=== PATIENT | female | born 1950 | race Caucasian/White ===

== ENCOUNTER → 2017-08-12 11:23 | Outpatient (CLI) | payer OTHER, MEDICARE, SELFPAY ==
--- NOTE | 2017-08-12 | IMM_PTH ---
PATIENT: BONIFACIO CARPENTER LOC: [facility] U#:[id number] AGE/SX: 75/F ROOM: RE08/12/[address]: Dr. Jesus Penaloza MD : 1950 BED: DIS: SPEC #: [id number] RECD: 08/13/17 10:29 STATUS: CHEL REElicia #: [id number] JONNIE: 08/12/17 00:[address]: Jesus Penaloza DEPT: IMMUNOHISTOCHEMISTRY RECD BY: Erika Zuniga ENTERED: 08/13/17 10:32 SP TYPE: IMMUNO OTHR DR: Dr. Dany Holman MD Tissues: B - Skin of forearm, NOS Procedures: MACRO (add) P53 (add) Vimentin (add) Pankeratin (add) MELAN-A (initial) S-100 (add) PHYSICIAN & INSTITUTION [place] [id number] SPECIMEN INFORMATION: Tissue Source: B ? Left forearm punch biopsy Clinical Info: Skin lesion left scapula and left forearm Specimen Number: [id number] CPT code: 55847, 11691 x5 METHODOLOGY: Deparaffinized sections of prefer/formalin-fixed tissue or PAP/DQ stained slides are incubated with monoclonal/polyclonal antibodies/oligonucleotide probes. Localization is made via biotin free immunoperoxidase method. Appropriate controls are performed and reacted as expected. Results on target cell population are indicated in the following table: RESULTS: ANTIBODY / CLONE RESULT Block B S-100 (4C4.9) negative Melan A (A103) positive Vimentin (V9) positive AE1-3 (AE1/AE3/PCK26) negative P53 (DO-7) negative Macro (HAM-56) negative These tests were developed and their performance characteristics determined by [facility]. They may not have been cleared or approved by the U.S. Food and Drug Administration. The FDA has determined that such clearance or approval is not necessary. INTERPRETATION: B. Left forearm, punch biopsy: Consistent with solar lentigo. AM:víctor 08/13/17
--- NOTE | 2017-08-12 09:30 | LES_PTH ---
PATIENT: BONIFACIO CARPENTER LOC: [facility] U#:[id number] AGE/SX: 75/F ROOM: RE08/12/[address]: Dr. Jesus Penaloza MD : 1950 BED: DIS: SPEC #: [id number] RECD: 08/12/17 10:19 STATUS: CHEL MILTON #: [id number] JONNIE: 08/12/17 09:[address]: Jesus Penaloza DEPT: SURGICAL PATHOLOGY RECD BY: Emanuel Tello ENTERED: 08/12/17 11:47 SP TYPE: Lesion OTHR DR: Dr. Dany Holman MD Tissues: A - Scapula, NOS B - Skin of forearm, NOS Procedures: Special Stain Group I Surgery Specimen Level IV GMS Stain (control) HEADER OPERATION: Left scapula shave biopsy and left forearm punch PRE-OP DIAGNOSIS: Skin lesion left scapula and left forearm TISSUE SUBMITTED: A ? Left scapula shave biopsy, B ? Left forearm punch biopsy MICROSCOPIC DIAGNOSIS A. Lesion of left scapula, shave biopsy: Verrucoid keratosis, inflamed. See comment. B. Skin of left forearm, punch biopsy: Consistent with solar lentigo. Solar elastosis. See comment. AM:víctor 08/13/17 COMMENT A. GMS stain with matched control reveals rare fungal organisms suggestive of Tinea. B. Immunohistochemistry ([id number]) supports the above diagnosis. MICROSCOPIC DESCRIPTION Slides are reviewed. GROSS DESCRIPTION A - Received in fixative is one container labeled with the patient's name and designated left scapula shave biopsy. The specimen consists of a shave biopsy of healy-white skin measuring 0.5 x 0.5 x 0.1 cm. The specimen is inked and submitted entirely in one cassette. It will be bisected at the time of embedding. B - Received in fixative is one container labeled with the patient's name and designated left forearm. The specimen consists of a punch biopsy of healy-brown skin measuring 0.3 cm in diameter and 0.3 cm in length. The specimen is totally submitted in one cassette. / TROY:víctor 08/12/17 TC:5 CPT: 85794 x2, 76901
== END ==
PROVIDERS: Family Provider Internal Medicine; PCP Internal Medicine; Visit Provider Surgery
DX: L82.0 Inflamed seborrheic keratosis (principal); L57.8 Other skin changes due to chronic exposure to nonionizing radiation
CPT/HCPCS: 88305; 88312; 88341; 88342

== ENCOUNTER → 2017-10-20 08:32 | Outpatient (CLI) | payer OTHER, MEDICARE, SELFPAY ==
--- NOTE | 2017-10-20 08:36 | BI_ITS ---
MAMMOGRAPHY - BILATERAL SCREENING 3-D JIGNESH SYNTHESIS REASON FOR EXAM: Female, 67 years old. Bilateral Screening 3-D tomosynthesis PERTINENT HISTORY: Asymptomatic. Right stereotactic biopsy 20+ years ago. Family breast carcinoma suspected, mother age 91. TECHNIQUE: 2-D mammograms and 3-D Jignesh synthesis of the breast (s) were performed. CAD was performed. COMPARISON: 10/16/2016, 10/10/2015. FINDINGS: The breast composition is heterogeneously dense that can obscure small breast masses. No new asymmetric density, dominant mass, dense spiculated masses, abnormal clustered microcalcifications, architectural distortion, skin thickening or nipple retraction identified. Coarse benign-appearing calcifications including severe vascular calcifications. No new abnormality identified with tomosynthesis. There has been no significant change since the prior study. BI/SCREENING MAMM (CAD), BILAT IMPRESSION: No mammographic signs of malignancy. Routine yearly mammograms recommended. ASSESSMENT CATEGORY: BIRADS Category 2: Benign. A letter regarding these results will be sent to the patient by the facility within 30 days. FOLLOW UP RECOMMENDATION: Yearly follow up mammogram recommended. (A) Negative results should not deter biopsy as a palpable lesion should be followed on clinical grounds and biopsy performed if clinically persistent for 3 months or increasing size. Approximately 10% of breast cancers are not detected by mammography. A normal mammogram should not delay biopsy of a clinically suspicious abnormality. Electronically Signed: Jesus Burgos, at 19:38 EDT Tel , Service support ,
== END ==
PROVIDERS: Family Provider Internal Medicine; PCP Internal Medicine; Visit Provider Nurse Practitioner Women's Health
DX: Z12.31 Encounter for screening mammogram for malignant neoplasm of breast (principal)
CPT/HCPCS: 77063; 77067

== ENCOUNTER → 2017-11-08 07:54 | Outpatient (CLI) | payer OTHER, MEDICARE, SELFPAY ==
--- NOTE | 2017-11-08 07:55 | US_ITS ---
STUDY: ULTRASOUND OF THE FEMALE PELVIS - COMPLETE REASON FOR EXAM: Female, 67 years old. Right-sided mass LMP: Unknown. TECHNIQUE: Transabdominal and Transvaginal TECHNICAL QUALITY: Adequate. COMPARISON: None. FINDINGS: The uterus is anteverted and is in a midline position. The uterus measures 4.5 x 2.3 x 2.0 cm. Normal uterine cervix. The endometrium measures 4.1 mm in thickness, and is hyperechoic. There is no demonstrated endometrial mass. There is no demonstrated myometrial mass. I.U.D. - The patient does not have an I.U.D. The right ovary is visualized. There is a heterogeneously echogenic overall hypoechoic right adnexal mass measuring 7.0 x 7.6 x 5.5 cm. Discrete right ovarian tissue is not identified. The left ovary is non-visualized. There is no fluid in the cul-de-sac. The pre void volume of the bladder was 180 ml. Polycystic ovary disease: No. US/Pelvic (Non ) IMPRESSION: Heterogeneously echogenic overall hypoechoic right adnexal mass measuring 7.0 x 7.6 x 5.5 cm. Discrete right ovarian tissue is not identified. The left ovary is not visualized. Uterus is unremarkable. CT of the pelvis with oral and intravenous contrast and/or pelvic MRI is recommended for further evaluation at this time. Electronically Signed: Luis A Shaw MD at 17:06 EDT , Service support ,
--- NOTE | 2017-11-08 07:55 | US_ITS ---
STUDY: ULTRASOUND OF THE FEMALE PELVIS - COMPLETE REASON FOR EXAM: Female, 67 years old. Right-sided mass LMP: Unknown. TECHNIQUE: Transabdominal and Transvaginal TECHNICAL QUALITY: Adequate. COMPARISON: None. FINDINGS: The uterus is anteverted and is in a midline position. The uterus measures 4.5 x 2.3 x 2.0 cm. Normal uterine cervix. The endometrium measures 4.1 mm in thickness, and is hyperechoic. There is no demonstrated endometrial mass. There is no demonstrated myometrial mass. I.U.D. - The patient does not have an I.U.D. The right ovary is visualized. There is a heterogeneously echogenic overall hypoechoic right adnexal mass measuring 7.0 x 7.6 x 5.5 cm. Discrete right ovarian tissue is not identified. The left ovary is non-visualized. There is no fluid in the cul-de-sac. The pre void volume of the bladder was 180 ml. Polycystic ovary disease: No. US/Transvaginal Non- IMPRESSION: Heterogeneously echogenic overall hypoechoic right adnexal mass measuring 7.0 x 7.6 x 5.5 cm. Discrete right ovarian tissue is not identified. The left ovary is not visualized. Uterus is unremarkable. CT of the pelvis with oral and intravenous contrast and/or pelvic MRI is recommended for further evaluation at this time. Electronically Signed: Luis A Shaw MD at 17:06 EDT , Service support ,
== END ==
PROVIDERS: Family Provider Internal Medicine; PCP Internal Medicine; Visit Provider Nurse Practitioner Women's Health
DX: N94.9 Unspecified condition associated with female genital organs and menstrual cycle (principal)
CPT/HCPCS: 76830; 76856

== ENCOUNTER → 2017-11-11 09:11 | Outpatient (CLI) | payer MEDICARE, OTHER, SELFPAY ==
[2017-11-12 10:02] LABS: Carcinoembryonic Antigen 1.7 ng/mL (0.0-4.7)
== END ==
PROVIDERS: Family Provider Internal Medicine; PCP Internal Medicine; Visit Provider Nurse Practitioner Women's Health
DX: N94.9 Unspecified condition associated with female genital organs and menstrual cycle (principal)
CPT/HCPCS: 36415; 82378; 86304

== ENCOUNTER → 2017-11-19 07:20 | Outpatient (CLI) | payer MEDICARE, SELFPAY ==
[2017-11-19 07:30] LABS: CREATININE FINGERSTICK < 0.6 mg/dL (0.55-1.02)
== END ==
PROVIDERS: Family Provider Internal Medicine; PCP Internal Medicine; Visit Provider Nurse Practitioner Women's Health
DX: N94.9 Unspecified condition associated with female genital organs and menstrual cycle (principal)
CPT/HCPCS: 74177; Q9967

== ENCOUNTER → 2017-12-10 08:58 | Outpatient (CLI) | payer MEDICARE, SELFPAY ==
[2017-12-10 10:08] LABS: T4 Free Direct 1.03 ng/dL (0.76-1.46)
== END ==
PROVIDERS: Family Provider Internal Medicine; PCP Internal Medicine; Referring Provider Obstetrics & Gynecology; Visit Provider Obstetrics & Gynecology
DX: R79.89 Other specified abnormal findings of blood chemistry (principal)
CPT/HCPCS: 84439; 84481

== ENCOUNTER 2017-12-15 12:16 | Day surgery (SDC) | payer MEDICARE, SELFPAY ==
--- NOTE | 2017-12-09 09:02 | EKG12_ITS ---
Test Reason : PREOP Blood Pressure : / mmHG Vent. Rate : 062 BPM Atrial Rate : 062 BPM P-R Int : 180 ms QRS Dur : 068 ms QT Int : 404 ms P-R-T Axes : 045 029 017 degrees QTc Int : 410 ms Normal sinus rhythm Low voltage QRS Borderline ECG Confirmed by SWAPNA HEARN, PALMER ([id number]), mapping editor JANUARY BOYER ([id number]) on 12/10/2017 1:27:16 PM Referred By: Gretta Rose Confirmed By:PALMER BARCENAS MD
[2017-12-09 09:32] LABS: Hematocrit 43.3 % (37-47); Hemoglobin 14.5 g/dl (12.0-15.0); Mean Corp Hgb Conc 33.5 g/gl (32-36); Mean Corpuscular Hgb 31.3 pg (27.0-32.0); Mean Corpuscular Volume 93.5 fL (81-99); Mean Platelet Vol. 11.3 fl (6.2-12.0); Platelet Count 195 K/mm3 (150-450); RBC Distribution Width CV 12.3 % (11.6-14.6); RBC Distribution Width SD 41.7 fl (35.1-43.9); Red Blood Count 4.63 M/mm3 (4.2-5.4); Scan Indicated on CBC? Y/N NO; White Blood Count 5.8 K/mm3 (4.4-11.0)
[2017-12-09 10:29] LABS: Thyroid Stim Hormone (TSH) 4.06 uIU/mL (0.358-3.74)
--- NOTE | 2017-12-15 | FLU_PTH ---
PATIENT: BONIFACIO CARPENTER LOC: [facility] [place] U#:[id number] AGE/SX: 67/F ROOM: RE12/15/[address]: Dr. Gretta Rose MD : 1950 BED: DIS: 12/15/2017 SPEC #: [id number] RECD: 12/15/17 16:04 STATUS: CHEL MILTON #: [id number] JONNIE: 12/15/17 00:[address]: Gretta Rose DEPT: CYTOLOGY RECD BY: Diego Rodrigues ENTERED: 12/16/17 08:54 SP TYPE: Fluid OTHR DR: Dr. Dany Holman MD Tissues: Pelvis, NOS Procedures: Pap Stain (control) Special Stain Group II Surgery Specimen Level IV Cell Block Cytospin Fluid HEADER OPERATION: Laparoscopic salpingo-oophorectomy with washings PRE-OP DIAGNOSIS: Complex ovarian cysts TISSUE SUBMITTED: Pelvic cell washings for cytology DIAGNOSIS CYTOLOGY Pelvic washing for cytology (cytospin and cell block): Negative for malignant cells. SJ:rg 12/17/17 COMMENT Clinical correlation and appropriate follow up are necessary. Please also make reference to corresponding surgical specimen [id number]. CYTOLOGY STUDY Slides are reviewed. The specimen consists of benign mesothelial cells and lymphocytes. CYTOLOGY GROSS Received is 20 ml of yellow, cloudy fluid labeled with the patient's name and and designated per the requisition as pelvic cell washings. Submitted for cytology preparation including cell block. / 12/16/17 TC:5 CPT: 02144, 06820
--- NOTE | 2017-12-15 | OV_PTH ---
PATIENT: BONIFACIO CARPENTER LOC: [facility] [place] U#:[id number] AGE/SX: 67/F ROOM: RE12/15/[address]: Dr. Gretta Rose MD : 1950 BED: DIS: 12/15/2017 SPEC #: [id number] RECD: 12/15/17 16:04 STATUS: CHEL MILTON #: [id number] JONNIE: 12/15/17 00:[address]: Gretta Rose DEPT: SURGICAL PATHOLOGY RECD BY: Diego Rodrigues ENTERED: 12/16/17 08:55 SP TYPE: OVARY OTHR DR: Dr. Dany Holman MD Tissues: Ovary, NOS Procedures: Surgery Specimen Level IV HEADER OPERATION: Laparoscopic salpingo-oophorectomy with washings PRE-OP DIAGNOSIS: Complex ovarian cysts TISSUE SUBMITTED: Bilateral fallopian tubes and ovaries MICROSCOPIC DIAGNOSIS Bilateral fallopian tubes and ovaries, salpingo-oophorectomy: Bilateral fallopian tubes including fimbrial ends and ovaries, no pathologic diagnosis. TROY:víctor 12/17/17 MICROSCOPIC DESCRIPTION Slides are reviewed. GROSS DESCRIPTION Received in fixative is one container labeled with the patient's name and designated bilateral fallopian tubes and ovaries. The specimen consists of bilateral fallopian tubes and adjacent ovaries. The fallopian tubes and ovaries are not identified as right or left. One of the fallopian tubes measure 5 cm in length and 0.5 cm in diameter. The fimbrial end is identified. No tubo-ovarian adhesions are noted. Sections reveal unremarkable cut surfaces. The adjacent ovary measures 1.5 x 0.5 x 0.5 cm. Sections reveal unremarkable cut surfaces. The second fallopian tube is similar appearance to first one and measures 5 cm in length and 0.5 cm in diameter. The adjacent second ovary measures 1.5 x 0.5 x 0.5 cm. Sections reveal unremarkable cut surfaces. [employer] sections are submitted in four cassettes as follows: 1 - fallopian tube, 2 - adjacent ovary, entirely submitted, 3 - second fallopian tube, 4 - adjacent ovary, entirely submitted. / TROY:víctor 12/16/17 TC:4 CPT: 96127 x2
[2017-12-15 12:57] VITALS: BP 137/83; PULSE 74; RESP 16; TEMP 37.6; O2SAT 99; BMI 27.3
[2017-12-15] MEDS: Phenazopyridine 95 MG Tablet 190 MG PO (13:01)
--- NOTE | 2017-12-15 14:57 | OP.PCM_ITS ---
Problem List (1) Adnexal mass Status: Acute Report of Operation Date of Procedure: 12/15/17 Pre-Operative Diagnosis: Adnexal mass Post-Operative Diagnosis: Large intramural uterine fibroid Surgery/Procedure Performed:: Laparoscopic BSO cytologic washings Description of Surgical Findings:: Normal atrophic ovaries and fallopian tubes bilaterally. Large intramural fundal fibroid approximately 7 cm peripheral vascular tech: Sarah Harris Type of Anesthesia:: General Special Medications: None Specimen's removed: Bilateral tubes ovaries and cytologic washings Drains: Mendoza Estimated Blood Loss (mL): Minimal Fluids Replaced: Crystalloid Description of Procedure: Patient was taken in the operating room and was placed under general anesthesia was prepped and draped in normal sterile fashion in the dorsal lithotomy position. Bladder was drained of clear urine and SCDs were on preoperatively. Uterus was sounded and a uterine manipulator was placed after dilating. Attention was then paid to the abdominal portion of the procedure and the umbilicus was elevated with towel clamps and injected with Marcaine and after a 12 mm incision was made and the Veress needle was entered into the abdomen confirmed to be intra-abdominal with a low opening pressure of less than 5 mmHg. Abdomen was insufflated with CO2 gas and a 12 mm optical trocar was placed under direct visualization. A right and left lower quadrant 5 mm ports were placed under direct visualization. Uterus was well visualized and bilateral fallopian tubes and ovaries were identified and the infundibulopelvic ligaments were transected across using the LigaSure device followed by transecting across the mesosalpinx to the attachment to the uterine corpus bilaterally the tubes and ovaries were removed without complication. Excellent hemostasis was noted. Fallopian tubes were removed through the lower port sites without complication. Liver and upper abdomen were visualized notably within normal limits and no other gross abnormalities were seen in the abdomen. All instruments removed from the abdomen after gas was desufflated. Port sites were closed with 3-0 Monocryl Steri's and op sites were applied. All instruments removed from the vagina and patient was awoken and taken recovery in stable condition. Grafts/Implants Used: None - Complications None - Admit VTE Documentation VTE Present on Admission: No
[2017-12-15] MEDS: Bupivacaine Mpf 0.5% 30 ML VIAL (15:13)
[2017-12-15 16:24] VITALS: BP 137/83; BP 156/96; PULSE 96; RESP 15; TEMP 36.1; O2SAT 90
[2017-12-15 16:30] VITALS: BP 137/83; BP 174/93; PULSE 78; RESP 16; O2SAT 98
[2017-12-15 16:40] VITALS: BP 137/83; BP 159/91; PULSE 74; RESP 16; O2SAT 96
[2017-12-15 16:45] VITALS: BP 137/83; BP 160/84; PULSE 71; RESP 16; TEMP 36.1; O2SAT 95
--- NOTE | 2017-12-15 17:03 | DCINST_ITS ---
Discharge Diet: No Restrictions - Increase fluid intake for the next 48 hours. Discharge Activity: Return to Normal Activity, May Drive - when you are no longer taking narcotic pain medications., May Shower, May Take a Tub Bath - in 7 days Additional Activity Instructions:: Ambulate often the next week after surgery. Nothing in the vagina for 5 days. Call your doctor if your incision/area has: Continuous Slow Oozing, Sudden Increased Bleeding, Increased Pain/ Swelling, Increased Redness, Foul Smelling Discharge Call your doctor if you observe: Fever of 101 or Higher Allergies/Adverse Reactions: Allergies hydromorphone HCl [From Dilaudid] Adverse Reaction (Verified 12/08/17 09:15) Vomiting Sulfa (Sulfonamide Antibiotics) Adverse Reaction (Verified 12/08/17 09:15) Nausea Medications to take at Discharge Ranitidine [Zantac] 150 mg PO PRN PRN 12/08/17 Oxycodone HCl/Acetaminophen [Percocet 5-325] 1 - 2 tablet PO Q4H PRN PRN 7 Days #15 tablet 12/15/17 The following prescriptions were given: Oxycodone HCl/Acetaminophen [Percocet 5-325] 1 - 2 tablet PO Q4H PRN PRN 7 Days #15 tablet PRN Reason: Pain Primary Care Physician: Dany Holman MD [Primary Care Provider] - Test Results: Test results from this visit will be discussed in further detail at your follow- up appointment, if applicable. Please Follow Up With: Gretta Rose MD - [phone]
[2017-12-15 17:54] VITALS: BP 137/83; BP 158/85; PULSE 67; RESP 16; TEMP 36.4; O2SAT 93
== END 2017-12-15 17:59 | disposition home or self-care (01) ==
LOC: SDC 12:17 → AC 12:17
PROVIDERS: Family Provider Internal Medicine; PCP Internal Medicine; Visit Provider Obstetrics & Gynecology
PROC: (CPT 58661; principal; 2017-12-15 14:00)
DX: N83.209 Unspecified ovarian cyst, unspecified side (principal); D25.1 Intramural leiomyoma of uterus; N83.332 Acquired atrophy of left ovary and fallopian tube; N83.331 Acquired atrophy of right ovary and fallopian tube; M19.90 Unspecified osteoarthritis, unspecified site; K21.9 Gastro-esophageal reflux disease without esophagitis; Z78.0 Asymptomatic menopausal state; Z79.899 Other long term (current) drug therapy
CPT/HCPCS: 58661; 36415; 84443; 85027; 86850; 86900; 88108; 88305; 88313; 93005; J7120; J2405

== ENCOUNTER → 2018-06-13 07:53 | Outpatient (CLI) | payer MEDICARE, SELFPAY ==
--- NOTE | 2018-06-13 08:07 | US_ITS ---
STUDY: ULTRASOUND OF THE FEMALE PELVIS - COMPLETE REASON FOR EXAM: Female, 68 years old. Postoperative bilateral oophorectomy, fibroid. TECHNIQUE: Transabdominal and transvaginal. Conventional imaging obtained for refined assessment of the endometrial contents and adnexal structures. (Transvaginal imaging, if present, was performed for enhanced visualization of uterus and endometrium, and posterior adnexal structures). COMPARISON: None. FINDINGS: The ovaries are surgically absent. No suspicious adnexal cyst or free fluid. No cul-de-sac free fluid. Anteverted midline uterus 6.0 x 2.2 x 2.2 cm Right adnexal mass measures 7.7 x 7.4 x 7.3 cm, contiguous with uterine fundus. By report this was surgically demonstrated to represent a uterine fibroid. Oophorectomy. US/Pelvic (Non ) IMPRESSION: Fundal fibroid 7.7 cm. Electronically Signed: Emanuel Brown MD at 17:26 EDT Tel , Service support ,
--- NOTE | 2018-06-13 08:07 | US_ITS ---
STUDY: ULTRASOUND OF THE FEMALE PELVIS - COMPLETE REASON FOR EXAM: Female, 68 years old. Postoperative bilateral oophorectomy, fibroid. TECHNIQUE: Transabdominal and transvaginal. Conventional imaging obtained for refined assessment of the endometrial contents and adnexal structures. (Transvaginal imaging, if present, was performed for enhanced visualization of uterus and endometrium, and posterior adnexal structures). COMPARISON: None. FINDINGS: The ovaries are surgically absent. No suspicious adnexal cyst or free fluid. No cul-de-sac free fluid. Anteverted midline uterus 6.0 x 2.2 x 2.2 cm Right adnexal mass measures 7.7 x 7.4 x 7.3 cm, contiguous with uterine fundus. By report this was surgically demonstrated to represent a uterine fibroid. Oophorectomy. US/Transvaginal Non- IMPRESSION: Fundal fibroid 7.7 cm. Electronically Signed: Emanuel Brown MD at 17:26 EDT Tel , Service support ,
== END ==
PROVIDERS: Family Provider Internal Medicine; PCP Internal Medicine; Referring Provider Obstetrics & Gynecology; Visit Provider Obstetrics & Gynecology
DX: D25.9 Leiomyoma of uterus, unspecified (principal)
CPT/HCPCS: 76830; 76856

== ENCOUNTER → 2018-10-24 08:06 | Outpatient (CLI) | payer MEDICARE, SELFPAY ==
[2017-12-31 12:19] VITALS: BMI 27.0
--- NOTE | 2018-10-24 08:09 | BI_ITS ---
MAMMOGRAPHY - BILATERAL SCREENING REASON FOR EXAM: Female, 68 years old. Routine annual screening examination. PERTINENT HISTORY: Mother with breast cancer. Remote right stereotactic breast biopsy. TECHNIQUE: Digital bilateral breast jignesh (3D mammographic acquisition) in the CC and MLO projections. 2-D mediolateral oblique (MLO) and craniocaudad (CC) views of both breasts were obtained. CAD: Full Field Digital Mammography with Computer Added Detection was performed. COMPARISON: Comparison is made with prior examination dated October 20, 2017 and October 16, 2016. FINDINGS: Breast Composition: The breasts are heterogeneously dense, which may obscure small masses. There are no dominant masses or suspicious calcifications. Stable bilateral secretory calcifications. Stable appearance of the bilateral axillary lymph nodes. No other significant abnormalities are identified. There has been no significant change since the prior study. BI/SCREEN MAMM (CAD) W/JIGNESH BILAT IMPRESSION: Stable bilateral screening mammogram. Yearly follow-up mammogram recommended. (A) ASSESSMENT CATEGORY: BIRADS Category 2: Benign. A letter regarding these results will be sent to the patient by the facility within 30 days. Approximately 10% of breast cancers are not detected by mammography. A normal mammogram should not delay biopsy of a clinically suspicious abnormality. [id number] Electronically Signed: Carmelo Hudson, at 9:29 EDT , Service support ,
== END ==
PROVIDERS: Family Provider Internal Medicine; PCP Internal Medicine; Referring Provider Obstetrics & Gynecology; Visit Provider Obstetrics & Gynecology
DX: Z12.31 Encounter for screening mammogram for malignant neoplasm of breast (principal)
CPT/HCPCS: 77063; 77067

== ENCOUNTER 2019-02-22 05:26 | Day surgery (SDC) | payer MEDICARE, SELFPAY ==
--- NOTE | 2019-02-14 04:34 | HP_ITS ---
Intake Vital Signs 02/14/19 Body Mass Index (BMI) 27.0 02/14/19 Height 5 ft 5.6 in 02/14/19 Weight: 145 lb 02/14/19 Body Mass Index (BMI) 23.6 02/14/19 Blood Pressure 139/82 H 02/14/19 Blood Pressure Location Rt brachial 02/14/19 Blood Pressure Position Sitting 02/14/19 Respiratory Rate 18 02/14/19 Pulse Rate 99 02/14/19 Pulse Source Monitor 02/14/19 Temperature 98.4 F 02/14/19 Temperature Source Oral 02/14/19 Pulse Ox 95 02/14/19 Oxygen Delivery Method room air Intake Visit Reasons: Rectal bleeding Chief Complaint: rectal bleeding Host/Hostess Head Required: No Accompanied by: Is patient in pain?: No Allergies hydromorphone HCl [From Dilaudid] Adverse Reaction (Verified 02/14/19 15:32) Vomiting Sulfa (Sulfonamide Antibiotics) Adverse Reaction (Verified 02/14/19 15:32) Nausea Medications Ranitidine [Zantac] 150 mg PO PRN PRN 12/08/17 [History Confirmed 02/14/19] amlodipine 2.5 mg tablet 2.5 mg PO DAILY 10/24/18 [History Confirmed 02/14/19] [facility] Medical History (Updated 02/14/19 @ 16:32 by Jesus Penaloza MD) History of colitis (Acute) Rectal hemorrhage (Acute) Uterine fibroid (Chronic) Diarrhea (Acute) Hemorrhoids (Acute) Rectal bleeding (Acute) GERD (gastroesophageal reflux disease) (Acute) Osteoarthritis (Acute) Hypertension (Chronic) Surgical History (Updated 02/14/19 @ 15:30 by Jennifer Baer) History of bilateral oophorectomy (Acute) S/P vein stripping (Acute) Family History Father CAD (coronary artery disease) Hypertension Brother CAD (coronary artery disease) Hypertension Colon cancer Social History (Updated 02/14/19 @ 16:34 by Jesus Penaloza MD) number of children: 2 current occupational status: retired Smoking Status: Never smoker alcohol intake: never substance use type: does not use caffeine: Yes what type of physical activity do you participate in: none seatbelt use: always do you feel safe at home: Yes additional social history: Erik HPI HPI HPI: BONIFACIO CARPENTER, is a 69 F who presents to the office today for HPI HPI Surgical H&P: Yes HPI: BONIFACIO CARPENTER, is a 69 F who presents to the office today for who presents today for surgical consultation. She is having new onset of abdominal pressure pain associated with rectal bleeding. Some of the history from her is little bit challenging to decipher through. Fortunately we were able to get previous records. It is of note that October 2014 I performed both an upper and lower endoscopy. She was found to have a large hiatal hernia with a benign esophageal stricture. H. pylori was positive and she was treated for 2 weeks. A colonoscopy was performed at the same date. Redundant colon identified. Erythematous mucosa in the rectum in the mid sigmoid identified and biopsied. Pathology demonstrated chronic active colitis with ulceration. No evidence of granulomas or dysplasia. In the rectum. In the sigmoid it showed patchy acute colitis with mild crypt architectural distortion no dysplasia. The patient was then referred to wedding designer Dr. Prosper Guerrero for treatment of the colitis. I have evidence of a office note dictated April 16, [address] Guerrero. The patient was felt to have stable reflux esophagitis and treatment with PPI recommended. Because of her previous history of H. pylori positivity he recommended proceeding with a stool antigen for H. pylori. Because of the ulcerative proctitis he recommended a course of steroid enemas. It is of additional note that on January 04, 2015 the patient had esophageal manometry showing normal peristalsis and 9 out of 10 swallows. Her most recent clinic note was August 11, 2016 by Emma Mendez NP. At that time the patient states that she was not having abdominal pain not having any rectal bleeding. She was taking ranitidine daily for her reflux. She was not on any special treatment for her colitis. Annual fecal occult blood testing was recommended. There was note additional medications felt to be indicated at that time. ROS General General: No weight change, appetite, fatigue, colon cancer, breast cancer or weakness HEENT HEENT: No difficulty swallowing, eye injury, eye surgery, swollen glands or hoarseness Endo Endocrine: No thyroid disease, diabetes mellitus, thyroid cancer, Hair loss, heat intolerance or cold intolerance Skin Skin: No rash or changing moles Breast Breast: No left breast lump, right breast lump, nipple discharge, breast pain, abnormal mammogram, abnormal US or breast enlargement Musc Musculoskeletal: No back problems, arthritis, rheumatoid arthritis, gout or joint pain Cardio Cardiovascular: No murmur, pacemaker, heart disease, atrial fibrillation, high blood pressure, heart attack, heart stent, palpitations, shortness of breat with exertion or chest pain Psych Psychiatric: No depression, anxiety or hearing voices Resp Respiratory: No shortness of breath, No sleep apnea, No cough, No COPD, No asthma, No emphysema, No wheezing Gastro Gastrointestinal: Yes abdominal pain, No nausea or vomiting, Yes diarrhea, No constipation, Yes blood in stool, Yes acid reflux, Yes hemorrhoids, No ulcers, No gallbladder problem, No black,tarry stools Vince Hematologic: No blood thinners, No blood disorders, No bleeding, No anemia, No blood clots Neuro Neurologic: No system reviewed and no additional complaints, except as docu, No as per HPI, No abnormal walking, No abnormal hearing, No abnormal movements, No abnormal speech, No behavioral changes, No burning sensations, No confusion, No seizure-like activity, No unsteadiness, No dizziness, No localized weakness, No frequent falls, No headache(s), No lack of coordination, No loss of vision, No memory loss, No numbness, No other visual disturbances, No radiating pain, No restless legs, No sensory deficit, No fainting, No tingling, No tremor(s), No weakness, No other Exam Const General: cooperative, healthy appearing, comfortable, no acute distress Nutritional Appearance: average body habitus Orientation: alert, awake, oriented x3 HENMT Head: normal to inspection Chest Chest palpation & inspection: normal inspection of the chest Breast Palpation: No nipple discharge Resp Effort & Inspection: normal respiratory effort Auscultation: clear to auscultation bilaterally Cardio Heart Sounds: no murmurs GI Inspection: normal to inspection Palpation: no hepatosplenomegaly Auscultation: normal bowel sounds Neuro Other: Poor historian, unable to provide associate history of her upper and lower evaluation and treatment Extrem General: no calf tenderness bilaterally Psych Affect: normal affect Assessment & Plan Problems 1. Rectal hemorrhage K62.5 2. History of colitis Z87.19 Plan 69-year-old female presents with nonspecific abdominal pain gas and rectal bleeding. She has a history of sigmoid and rectal colitis which was treated by Dr. Prosper Guerrero gastroenterology. She has not recently been on any medical treatment. I recommended the patient that we perform a colonoscopy with possible biopsy or polypectomy as indicated. If the patient has recurrent active colitis then I will recommend appropriate GI management. She has had an opportunity to ask and have questions answered. We will schedule and try to expedite her care. I appreciate the ongoing opportunity of assisting with her surgical care. CC: Dr. Dany Penaloza M.D., F.A.C.S. Coding Level of Care Code Off vis,new,level 3 Diagnoses Rectal hemorrhage K62.5 History of colitis Z87.19 02/14/19 1634 <Electronically signed by Jesus redmond MD> Date _ Jesus Penaloza MD I have re-examined the patient. There are no clinical changes since date of exam.
[2019-02-14 15:33] VITALS: BMI 27.0
[2019-02-22 05:51] VITALS: BP 111/74; PULSE 100; RESP 18; TEMP 36.3; O2SAT 96; BMI 26.9
[2019-02-22] MEDS: Lactated Ringers 1,000 ML 100 ML IV (06:13)
--- NOTE | 2019-02-22 06:30 | COLBX_PTH ---
PATIENT: BONIFACIO CARPENTER LOC: EN U#:[id number] AGE/SX: 69/F ROOM: RE02/22/[address]: Dr. Jesus Penaloza MD : 1950 BED: DIS: 02/22/2019 SPEC #: [id number] RECD: 02/22/19 10:50 STATUS: CHEL MILTON #: [id number] JONNIE: 02/22/19 06:[address]: Jesus Penaloza DEPT: SURGICAL PATHOLOGY RECD BY: Jesus Salvador ENTERED: 02/22/19 13:32 SP TYPE: COLON BX OTHR DR: Dr. Dany Holman MD Tissues: A - Right colon B - Rectosigmoid junction Procedures: Surgery Specimen Level IV HEADER OPERATION: Colonoscopy (MAC) PRE-OP DIAGNOSIS: Rectal hemorrhage, colitis TISSUE SUBMITTED: A. Right colon biopsy, B. Rectum/sigmoid biopsy MICROSCOPIC DIAGNOSIS A. Right colon, biopsy: Fragments of colonic mucosa, no pathologic diagnosis. B. Rectum/sigmoid biopsy: Consistent with chronic active colitis. See microscopic description and comment. TROY:víctor 02/23/19 COMMENT B. Correlation with clinical, endoscopic findings and appropriate follow up are necessary. MICROSCOPIC DESCRIPTION Slides are reviewed. B. The specimen reveals fragments of colonic mucosa with ulceration, acute and chronic inflammation, granulation tissue reaction, cryptitis, crypt abscesses and mild glandular distortion. Granulomas are not seen. No evidence of dysplasia. The findings are consistent with inflammatory bowel disease. GROSS DESCRIPTION A - Received in fixative is one container labeled with the patient's name and designated right colon biopsy. The specimen consists of multiple irregular fragments of light healy soft tissue that in aggregate measure 1 x 0.5 x 0.1 cm. The specimen is totally submitted in one cassette. B - Received in fixative is one container labeled with the patient's name and designated rectum/sigmoid biopsy. The specimen consists of multiple irregular fragments of light healy soft tissue that in aggregate measure 2 x 0.4 x 0.1 cm. The specimen is totally submitted in one cassette. / TROY:víctor 02/22/19 TC:2 CPT: 41347 x2
[2019-02-22 06:55] VITALS: BP 100/64; BP 111/74; PULSE 87; RESP 20; TEMP 36.6; O2SAT 98
[2019-02-22 07:00] VITALS: BP 111/74; BP 99/70; PULSE 84; RESP 18; O2SAT 98
--- NOTE | 2019-02-22 07:03 | OP.COLON_ITS ---
Patient Name: Amy Brown Procedure Date: 02/22/2019 6:17 AM Date of : 1950 Age: 69 Procedure: Colonoscopy Indications: Rectal bleeding Providers: Jesus Penaloza MD Referring MD: Dany Holman Medicines: See the Anesthesia note for documentation of the administered medications Patient Profile: Last Colonoscopy: 2014. Complications: No immediate complications. Procedure: Pre-Anesthesia Assessment: - Prior to the procedure, a History and Physical was performed, and patient medications and allergies were reviewed. The patient's tolerance of previous anesthesia was also reviewed. The risks and benefits of the procedure and the sedation options and risks were discussed with the patient. All questions were answered, and informed consent was obtained. Prior Anticoagulants: The patient has taken no previous anticoagulant or antiplatelet agents. ASA Grade Assessment: II - A patient with mild systemic disease. After reviewing the risks and benefits, the patient was deemed in satisfactory condition to undergo the procedure. After I obtained informed consent, the scope was passed under direct vision. Throughout the procedure, the patient's blood pressure, pulse, and oxygen saturations were monitored continuously. The Colonoscope was introduced through the anus and advanced to the cecum, identified by appendiceal orifice and ileocecal valve. The colonoscopy was performed without difficulty. The patient tolerated the procedure well. The quality of the bowel preparation was good. The ileocecal valve and the appendiceal orifice were photographed. Scope In: 6:35:18 AM Scope Withdrawal Time 0 hours 7 minutes 26 seconds Scope Out: 6:48:39 AM Total Procedure Duration Time 0 hours 13 minutes 21 seconds Findings: Hemorrhoids were found on perianal exam. lax anal tone A continuous area of bleeding ulcerated mucosa with stigmata of recent bleeding was present in the rectum. Biopsies were taken with a cold forceps for histology. Diffuse severe inflammation characterized by granularity was found in the sigmoid colon. Biopsies were taken with a cold forceps for histology. The exam was otherwise normal throughout the examined colon. Biopsies were taken with a cold forceps in the ascending colon for histology. Impression: - Hemorrhoids found on perianal exam. - Mucosal ulceration. Biopsied. Entire sigmoid and rectum in a continuous patterns involved with severe colitis. - Diffuse severe inflammation was found in the sigmoid colon secondary to left-sided colitis. Biopsied. - Biopsies were taken with a cold forceps for histology in the ascending colon. Right and transverse colon appeared normal Recommendation: - Discharge patient to home. - Resume previous diet. - Continue present medications. Pending pathology with recommend treatment. Patient previously had steroid enemas prescribed per Dr Guerrero. - Repeat colonoscopy in 5 years for surveillance. - Telephone my office for pathology results in 1 week. Procedure Code(s): --- Professional --- 21494, Colonoscopy, flexible; with biopsy, single or multiple Diagnosis Code(s): --- Professional --- K64.9, Unspecified hemorrhoids K63.3, Ulcer of intestine K51.50, Left sided colitis without complications K62.5, Hemorrhage of anus and rectum CPT copyright 2017 [employer]. All rights reserved. The codes documented in this report are preliminary and upon multimedia authoring specialist review may be revised to meet current compliance requirements. Jesus Penaloza MD 02/22/2019 7:02:30 AM This report has been signed electronically. Number of Addenda: 0 Note Initiated On: 02/22/2019 6:17 AM
[2019-02-22 07:05] VITALS: BP 111/74; BP 99/68; PULSE 82; RESP 18; O2SAT 98
[2019-02-22 07:11] VITALS: BP 108/72; BP 111/74; PULSE 81; RESP 18; TEMP 36.6; O2SAT 98
[2019-02-22 07:19] VITALS: BP 111/74
== END 2019-02-22 07:51 | disposition home or self-care (01) ==
LOC: EN 05:27 → AC 05:27
PROVIDERS: Family Provider Internal Medicine; PCP Internal Medicine; Referring Provider Internal Medicine; Visit Provider Surgery
PROC: 0DJD8ZZ Inspection of Lower Intestinal Tract, Via Natural or Artificial Opening Endoscopic (ICD-10-PCS; CPT 45378; principal; 2019-02-22 06:25)
DX: K51.50 Left sided colitis without complications (principal); K64.9 Unspecified hemorrhoids; K21.9 Gastro-esophageal reflux disease without esophagitis; K62.5 Hemorrhage of anus and rectum; I10 Essential (primary) hypertension; M19.90 Unspecified osteoarthritis, unspecified site; Z79.899 Other long term (current) drug therapy
CPT/HCPCS: 45380; 88305; J7120

== ENCOUNTER → 2019-11-17 | Outpatient (CLI) | payer MEDICARE, SELFPAY ==
--- NOTE | 2019-11-17 08:26 | US_ITS ---
STUDY: ULTRASOUND OF THE FEMALE PELVIS - COMPLETE REASON FOR EXAM: Female, 69 years old. Fibroid LMP: The patient is postmenopausal. TECHNIQUE: Transabdominal and Transvaginal TECHNICAL QUALITY: Adequate. COMPARISON: Comparison is made with prior study dated 06/13/2018. FINDINGS: The uterus is anteverted and is tilted to the left side of the pelvis. The uterus measures 3.9 cm x 3.6 cm x 1.8 cm. Normal uterine cervix. The endometrium measures 2.0 mm in thickness, and is hyperechoic. There is no demonstrated endometrial mass. There is a 8.7 cm x 7.8 cm x 1 cm fibroid along the right side of the body of the uterus. I.U.D. - The patient does not have an I.U.D. The right ovary is non-visualized. The left ovary is non-visualized. There is no fluid in the cul-de-sac. US/Transvaginal Non- IMPRESSION: Large fibroid. This has increased slightly as compared to prior study. Electronically Signed: Carmelo Hudson, at 10:09 EDT , Service support ,
--- NOTE | 2019-11-17 08:26 | US_ITS ---
STUDY: ULTRASOUND OF THE FEMALE PELVIS - COMPLETE REASON FOR EXAM: Female, 69 years old. Fibroid LMP: The patient is postmenopausal. TECHNIQUE: Transabdominal and Transvaginal TECHNICAL QUALITY: Adequate. COMPARISON: Comparison is made with prior study dated 06/13/2018. FINDINGS: The uterus is anteverted and is tilted to the left side of the pelvis. The uterus measures 3.9 cm x 3.6 cm x 1.8 cm. Normal uterine cervix. The endometrium measures 2.0 mm in thickness, and is hyperechoic. There is no demonstrated endometrial mass. There is a 8.7 cm x 7.8 cm x 1 cm fibroid along the right side of the body of the uterus. I.U.D. - The patient does not have an I.U.D. The right ovary is non-visualized. The left ovary is non-visualized. There is no fluid in the cul-de-sac. US/Pelvic (Non ) IMPRESSION: Large fibroid. This has increased slightly as compared to prior study. Electronically Signed: Carmelo Hudson, at 10:09 EDT , Service support ,
== END | disposition home or self-care (01) ==
LOC: OPUS 08:26
PROVIDERS: PCP Internal Medicine; Referring Provider Nurse Practitioner Women's Health; Visit Provider Nurse Practitioner Women's Health
DX: D25.9 Leiomyoma of uterus, unspecified (principal)
CPT/HCPCS: 76830; 76856

== ENCOUNTER → 2019-12-12 | Outpatient (CLI) | payer MEDICARE, SELFPAY ==
--- NOTE | 2019-12-12 07:58 | BI_ITS ---
MAMMOGRAPHY - BILATERAL SCREENING REASON FOR EXAM: Female, 69 years old. Routine annual screening examination. PERTINENT HISTORY: Mother with breast cancer. Remote right stereotactic breast biopsy. TECHNIQUE: Digital bilateral breast jignesh (3D mammographic acquisition) in the CC and MLO projections. 2-D mediolateral oblique (MLO) and craniocaudad (CC) views of both breasts were obtained. CAD: Full Field Digital Mammography with Computer Added Detection was performed. COMPARISON: Comparison is made with prior examination 10/24/2018 and 10/20/2017. FINDINGS: Breast Composition: The breasts are heterogeneously dense, which may obscure small masses. There are no dominant masses or suspicious calcifications. Stable benign appearing right axillary lymph nodes. Stable bilateral secretory calcifications. No other significant abnormalities are identified. There has been no significant change since the prior study. BI/SCREEN MAMM (CAD) W/JIGNESH BILAT IMPRESSION: Stable bilateral screening mammogram. Yearly follow-up mammogram recommended. (A) ASSESSMENT CATEGORY: BIRADS Category 2: Benign. A letter regarding these results will be sent to the patient by the facility within 30 days. Approximately 10% of breast cancers are not detected by mammography. A normal mammogram should not delay biopsy of a clinically suspicious abnormality. [id number] Electronically Signed: Carmelo Hudson, at 8:49 EDT , Service support ,
== END | disposition home or self-care (01) ==
LOC: OPBI 07:56
PROVIDERS: PCP Internal Medicine; Referring Provider Internal Medicine; Visit Provider Internal Medicine
DX: Z12.31 Encounter for screening mammogram for malignant neoplasm of breast (principal)
CPT/HCPCS: 77063; 77067

== ENCOUNTER → 2020-12-18 07:31 | Outpatient (CLI) | payer MEDICARE, SELFPAY ==
[2019-12-12 08:46] VITALS: BMI 26.9
--- NOTE | 2020-12-18 07:36 | BI_ITS ---
MAMMOGRAPHY - BILATERAL SCREENING 3-D TOMOSYNTHESIS REASON FOR EXAM: Female, 70 years old. screening -- due after 12/11/20 PERTINENT HISTORY: No significant family history. TECHNIQUE: 2-D mammograms and 3-D Tomosynthesis of the breast (s) were performed. CAD was performed. COMPARISON: 12/12/2019 FINDINGS: The breast composition is Extermely dense tissue. Scattered benign calcifications are seen. No dense spiculated masses or suspicious microcalcifications are identified. No architectural distortion is identified. There is no skin thickening or retraction. There has been no significant change since the prior study. Bilateral benign vascular calcifications can be associated with coronary artery disease. BI/SCRN MAMM (CAD)W/JIGNESH BILAT IMPRESSION: No mammographic signs of malignancy. Routine yearly mammograms recommended. ASSESSMENT CATEGORY: BIRADS Category 2: Benign. A letter regarding these results will be sent to the patient by the facility within 30 days. FOLLOW UP RECOMMENDATION: Yearly follow up mammogram recommended. (A) Approximately 10% of breast cancers are not detected by mammography. A normal mammogram should not delay biopsy of a clinically suspicious abnormality. Electronically Signed: Emanuel Garcia MD at 12:50 EDT Tel , Service support ,
== END ==
PROVIDERS: PCP Internal Medicine; Referring Provider Nurse Practitioner Women's Health; Visit Provider Nurse Practitioner Women's Health
DX: Z12.31 Encounter for screening mammogram for malignant neoplasm of breast (principal)
CPT/HCPCS: 77063; 77067

== ENCOUNTER → 2021-12-19 | Outpatient (CLI) | payer MEDICARE, SELFPAY ==
--- NOTE | 2021-12-19 08:34 | BI_ITS ---
MAMMOGRAPHY - BILATERAL SCREENING REASON FOR EXAM: Female, 71 years old. Routine annual screening examination. PERTINENT HISTORY: Mother with breast cancer. Remote right stereotactic breast biopsy. TECHNIQUE: Digital bilateral breast jignesh (3D mammographic acquisition) in the CC and MLO projections. 2-D mediolateral oblique (MLO) and craniocaudad (CC) views of both breasts were obtained. CAD: Full Field Digital Mammography with Computer Added Detection was performed. COMPARISON: Comparison is made with prior examination dated 12/18/2020 and 12/12/2019. FINDINGS: Breast Composition: The breasts are extremely dense, which lowers the sensitivity of mammography. There are no dominant masses or suspicious calcifications. Stable benign-appearing bilateral axillary lymph nodes. No other significant abnormalities are identified. There has been no significant change since the prior study. BI/SCRN MAMM (CAD)W/JIGNESH BILAT IMPRESSION: Stable bilateral screening mammogram. Yearly follow-up mammogram recommended. (A) ASSESSMENT CATEGORY: BIRADS Category 2: Benign. A letter regarding these results will be sent to the patient by the facility within 30 days. Approximately 10% of breast cancers are not detected by mammography. A normal mammogram should not delay biopsy of a clinically suspicious abnormality. [id number] Electronically Signed: Carmelo Hudson MD at 10:20 EDT ,
== END | disposition home or self-care (01) ==
LOC: OPBI 08:33
PROVIDERS: PCP Internal Medicine; Visit Provider Nurse Practitioner Women's Health
DX: Z12.31 Encounter for screening mammogram for malignant neoplasm of breast (principal); Z80.3 Family history of malignant neoplasm of breast
CPT/HCPCS: 77063; 77067

== ENCOUNTER 2022-09-23 08:20 | Day surgery (SDC) | payer MEDICARE, SELFPAY ==
[2022-09-23] VITALS (9 sets, daily range): BP systolic 76–112; BP diastolic 53–76; PULSE 79–104; RESP 16–18; TEMP 36.3–36.7; O2SAT 93–98; BMI 26.6
--- NOTE | 2022-09-23 | IMM_PTH ---
PATIENT: BONIFACIO CARPENTER LOC: [facility] [place] U[place][id number] AGE/SX: 72/F ROOM: RE09/23/[address]: Dr. Jesus Penaloza MD : 1950 BED: DIS: 09/23/2022 SPEC #: [id number] RECD: 09/24/22 06:45 STATUS: CHEL REElicia #: [id number] JONNIE: 09/23/22 00:[address]: Jesus Penaloza DEPT: IMMUNOHISTOCHEMISTRY RECD BY: Irene Cornell ENTERED: 09/24/22 06:46 SP TYPE: IMMUNO OTHR DR: Dr. Dany Holman MD Tissues: A - Gastric mucous membrane Procedures: H Pylori (initial) PHYSICIAN & INSTITUTION [place] [id number] SPECIMEN INFORMATION: Tissue Source: Antrum Clinical Info: Rectal hemorrhage, history of colitis Specimen Number: [id number] CPT code: 25429 METHODOLOGY: Deparaffinized sections of prefer/formalin-fixed tissue or PAP/DQ stained slides are incubated with monoclonal/polyclonal antibodies/oligonucleotide probes. Localization is made via biotin free immunoperoxidase method. Appropriate controls are performed and reacted as expected. Results on target cell population are indicated in the following table: RESULTS: ANTIBODY / CLONE RESULT H Pylori (polyclonal) negative These tests were developed and their performance characteristics determined by [facility]. They may not have been cleared or approved by the U.S. Food and Drug Administration. The FDA has determined that such clearance or approval is not necessary. The above immunohistochemical/dualISH markers are ordered and reviewed by the Pathologist. INTERPRETATION: A. Antrum, biopsy: Negative for Helicobacter pylori organisms. AM:cindy 09/24/22
[2022-09-23] MEDS: Lactated Ringers 1,000 ML 15 ML IV ×2 (08:55→10:23)
--- NOTE | 2022-09-23 09:22 | PCM.HP.BLA ---
History and Physical Date of Admission: 09/23/22 Visit Reasons: RECTAL BLEEDING Chief Complaint: rectal bleeding [employer] Required: No Is patient in pain?: No Allergies hydromorphone HCl [From Dilaudid] Adverse Reaction (Verified 09/21/22 15:12) VomitingSulfa (Sulfonamide Antibiotics) Adverse Reaction (Verified 09/21/22 15:12) Nausea Medications multivitamin 1 tab PO DAILY 09/21/22 [History Confirmed 09/21/22] omeprazole 40 mg capsule,delayed release mg PO 09/21/22 [History Confirmed 09/21/22] [facility] Medical History (Updated 09/21/22 @ 15:[address] Jesus Penaloza MD) Diarrhea Gastritis GERD (gastroesophageal reflux disease) Hemorrhoids History of colitis Hypertension Osteoarthritis Rectal bleeding Rectal hemorrhage Uterine fibroid Surgical History History of bilateral oophorectomy S/P vein stripping Family History Father CAD (coronary artery disease) HypertensionBrother CAD (coronary artery disease) Hypertension Colon cancer Social History number of children: 2 current occupational status: retired Smoking Status: Never smoker alcohol intake: never substance use type: does not use caffeine: Yes what type of physical activity do you participate in: none seatbelt use: always do you feel safe at home: Yes additional social history: Erik HPI HPI HPI: 72-year-old female is being referred by Dr. Dany Holman for surgical consultation regarding rectal bleeding. By report she started having looser intermittently bloody stools. 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 I have the lab work of September 11, 2022 but the white count 13.6 , hemoglobin is 12.1 and hematocrit 37 point 0.3 with a platelet count of 274,000 I have previously assisted her with a colonoscopy for rectal bleeding on February 22, 2019. Findings suggested hemorrhoids and lax anal tone in the continuous area of bleeding ulcerated mucosa of the rectum. There was felt to be some diffuse severe inflammation characterized by granularity found in the sigmoid colon. Pathology of the right colon biopsies showed normal mucosa. Biopsies of the rectum and sigmoid suggested chronic active colitis. Acute and chronic inflammation. Cryptitis. Crypt abscesses. Mild glandular distortion. Granulomas were not seen. The findings were felt to be consistent with inflammatory bowel disease. The patient was then referred on to gastroenterology Emma Mendez. I had initially prescribed her roadways enemas but these were changed over to mesalamine enemas. The patient states that quickly her symptoms of rectal bleeding resolved. She did not have further follow-up with GI/74. She has not had recurrent symptoms to currently. Current symptoms described as severe mid abdominal pain and distention. She was seen by Dr. Dany Holman and a tentative diagnosis of acute gastritis was offered. The patient had not been the able to eat for a couple weeks. She was prescribed omeprazole she said and another medication and she did get improvement. About 3 weeks later then she said the rectal bleeding started. She reminds me that in the past she thinks she remembers my assisting her with H. pylori gastritis. ROS General General: No weight change, appetite, fatigue, colon cancer, breast cancer or weakness HEENT HEENT: No difficulty swallowing, eye injury, eye surgery, swollen glands or hoarseness Endo Endocrine: No thyroid disease, diabetes mellitus, thyroid cancer, Hair loss, heat intolerance or cold intolerance Skin Skin: No rash or changing moles Breast Breast: No left breast lump, right breast lump, nipple discharge, breast pain, abnormal mammogram, abnormal US or breast enlargement Musc Musculoskeletal: No back problems, arthritis, rheumatoid arthritis, gout or joint pain Cardio Cardiovascular: No murmur, pacemaker, heart disease, atrial fibrillation, high blood pressure, heart attack, heart stent, palpitations, shortness of breat with exertion or chest pain Psych Psychiatric: No depression, anxiety or hearing voices Resp Respiratory: No shortness of breath, No sleep apnea, No cough, No COPD, No asthma, No emphysema and No wheezing Gastro Gastrointestinal: Yes abdominal pain, No nausea or vomiting, Yes diarrhea, No constipation, Yes blood in stool, No acid reflux, Yes hemorrhoids, No ulcers, No gallbladder problem and No black,tarry stools Vince Hematologic: No blood thinners, No blood disorders, No bleeding, No anemia and No blood clots Neuro Neurologic: No system reviewed and no additional complaints, except as documented, No as per HPI, No abnormal gait, No abnormal hearing, No abnormal movements, No abnormal speech, No behavioral changes, No burning sensations, No confusion, No convulsions, No disequilibrium, No dizziness, No localized weakness, No frequent falls, No headache(s), No lack of coordination, No loss of vision, No memory loss, No numbness, No other visual disturbances, No radicular pain, No restless legs, No sensory deficit, No syncope, No tingling, No tremor(s), No weakness and No other Exam Const General: cooperative, healthy appearing, comfortable and no acute distress [facility] Head: normal to inspection Eyes General: appearance normal, both eyes and all related structures Neck Neck: normal visual inspection Chest Chest palpation & inspection: normal inspection of the chest Resp Effort & Inspection: normal respiratory effort Auscultation: clear to auscultation bilaterally Cardio Rate: regular rate Rhythm: regular rhythm GI Inspection: normal to inspection Palpation: soft and no hepatosplenomegaly Auscultation: normal bowel sounds Musc Cervical Spine: normal cervical lordosis Skin General: no rashes or lesions noted Neuro General: patient alert, patient awake and patient oriented x3 Extrem General: no calf tenderness Psych Appearance: grossly normal Assessment and Plan Assessment and Plan (1) Rectal hemorrhage: Status: Acute (2) History of colitis: Status: Acute Plan: 72-year-old female who had acute mid epigastric abdominal pain tentatively diagnosed with acute gastritis improved with omeprazole therapy with then subsequent onset of rectal bleeding. She has had by her account remote H. pylori gastritis in 2015.. I propose for her a combined esophagogastroduodenoscopy with possible biopsy and colonoscopy with possible biopsy or polypectomy as indicated. She is aware of the technique, benefit, risk, alternatives. She has had an opportunity to ask and have questions answered. I appreciate the kind opportunity to continue to assist with her surgical care. Copy: Dr. aDny Penaloza M.D., F.A.C.S I have examined the patient and the H&P has been reviewed. There are no clinical changes since date of exam. Jesus Penaloza M.D., F.A.C.S.
--- NOTE | 2022-09-23 09:30 | EGD_PTH ---
PATIENT: BONIFACIO CARPENTER LOC[place] [facility] [place][id number] AGE/SX: 72/F ROOM: RE09/23/[address]: Dr. Jesus Penaloza MD : 1950 BED: DIS: 09/23/2022 SPEC #: [id number] RECD: 09/23/22 11:48 STATUS: CHEL ROSE #: [id number] JONNIE: 09/23/22 09:[address]: Jesus Penaloza DEPT: SURGICAL PATHOLOGY RECD BY: Radha Grady ENTERED: 09/23/22 11:55 SP TYPE: EGD BIOPSY OT DR: Dr. Dany Holman MD Tissues: A - Gastric mucous membrane B - Esophagus, NOS C - COLON BIOPSY Procedures: Special Stain Group II Surgery Specimen Level IV Alcian Blue/PAS (control) HEADER OPERATION: Colonoscopy, EGD PRE-OP DIAGNOSIS: Rectal hemorrhage, history of colitis TISSUE SUBMITTED: A. Antrum biopsy, B. Distal esophagus, C. Left colonic biopsies MICROSCOPIC DIAGNOSIS A. Antrum, biopsy: Chronic gastritis. B. Distal esophagus, biopsy: Fragments of benign squamous mucosa. C. Left colonic biopsies: Chronic active colitis pattern of injury with mild to moderate activity. No evidence of dysplasia. AM:am 09/24/22 COMMENT A. The results of immunohistochemistry for Helicobacter pylori will be reported separately ([id number]). B. Alcian blue/PAS stain with matched control supports the above diagnosis. C. Clinical correlation is necessary. MICROSCOPIC DESCRIPTION Slides are reviewed. Sections show cryptitis, crypt abscesses, glandular distortion, and expansion of mucosa with inflammatory infiltrate. No fissuring ulcers are seen and transmural lymphoid aggregates are identified, GROSS DESCRIPTION A. Received is one container labeled with the patient name and designated antrum. The specimen consists of one irregular fragment of light healy soft tissue that measures 0.3 x 0.3 x 0.1 cm. The specimen is totally submitted in one cassette. B. Received is one container labeled with the patient name and designated distal esophagus. The specimen consists of one irregular fragment of light healy soft tissue that measures 0.7 x 0.3 x 0.1 cm. The specimen is totally submitted in one cassette. C. Received is one container labeled with the patient name and designated left colonic. The specimen consists of multiple irregular fragments of light healy soft tissue that in aggregate measure 1.5 x 1 x 0.1 cm. The specimen is totally submitted in one cassette. / SJ:cc 09/23/22 TC:2 CPT: 51825 x3, 48088
--- NOTE | 2022-09-23 10:13 | OP.EGD_ITS ---
Patient Name: Amy Brown Procedure Date: 09/23/2022 9:31 AM Date of : 1950 Age: 72 Procedure: Upper GI endoscopy Indications: Esophageal reflux Providers: Jesus Penaloza MD Medicines: See the Anesthesia note for documentation of the administered medications Complications: No immediate complications. Procedure: Pre-Anesthesia Assessment: - Prior to the procedure, a History and Physical was performed, and patient medications and allergies were reviewed. The patient's tolerance of previous anesthesia was also reviewed. The risks and benefits of the procedure and the sedation options and risks were discussed with the patient. All questions were answered, and informed consent was obtained. Prior Anticoagulants: The patient has taken no previous anticoagulant or antiplatelet agents. ASA Grade Assessment: II - A patient with mild systemic disease. After reviewing the risks and benefits, the patient was deemed in satisfactory condition to undergo the procedure. After obtaining informed consent, the endoscope was passed under direct vision. Throughout the procedure, the patient's blood pressure, pulse, and oxygen saturations were monitored continuously. The pediatric colonoscope was introduced through the mouth, and advanced to the second part of duodenum. The upper GI endoscopy was accomplished without difficulty. The patient tolerated the procedure well. Scope In: 9:42:45 AM Scope Out: 9:50:12 AM Total Procedure Duration Time 0 hours 7 minutes 27 seconds Findings: The Z-line was regular and was found 36 cm from the incisors. Biopsies were taken with a cold forceps for histology. There is curvature and then some tightness at the diaphragmatic hiatus. The scope was able to be advanced. A medium-sized hiatal hernia was present. Diffuse mildly erythematous mucosa without bleeding was found in the gastric antrum. Biopsies were taken with a cold forceps for histology. The examined duodenum was normal. Impression: - Z-line regular, 36 cm from the incisors. Biopsied. - Medium-sized hiatal hernia. - Erythematous mucosa in the antrum. Biopsied. - Normal examined duodenum. Recommendation: - Discharge patient to home. - Resume previous diet. - Continue present medications. - Telephone my office for pathology results in 1 week. Procedure Code(s): --- Professional --- 40072, Esophagogastroduodenoscopy, flexible, transoral; with biopsy, single or multiple Diagnosis Code(s): --- Professional --- K44.9, Diaphragmatic hernia without obstruction or gangrene K31.89, Other diseases of stomach and duodenum K21.9, Gastro-esophageal reflux disease without esophagitis CPT copyright 2017 [employer]. All rights reserved. The codes documented in this report are preliminary and upon accounting representative review may be revised to meet current compliance requirements. Jesus Penaloza MD 09/23/2022 10:13:01 AM This report has been signed electronically. Number of Addenda: 0 Note Initiated On: 09/23/2022 9:31 AM
--- NOTE | 2022-09-23 10:14 | OP.CCLET_ITS ---
09/23/2022 Dany Holman [address] [place] [address] Re : Upper GI endoscopy procedure for Amy Brown Dear Dr. Holman This procedure was performed on Friday, September 23, 2022. My impressions and recommendations are as follows: Impressions : - Z-line regular, 36 cm from the incisors. Biopsied. - Medium-sized hiatal hernia. - Erythematous mucosa in the antrum. Biopsied. - Normal examined duodenum. Recommendations : - Discharge patient to home. - Resume previous diet. - Continue present medications. - Telephone my office for pathology results in 1 week. My findings are described in the full procedure note, which is enclosed. If I can be of further assistance, please feel free to contact me at Doctor phone number(s): Work: . Sincerely, Jesus Penaloza MD 09/23/2022 10:13:01 AM This report has been signed electronically.
--- NOTE | 2022-09-23 10:24 | OP.COLON_ITS ---
Patient Name: Amy Brown Procedure Date: 09/23/2022 9:50 AM Date of : 1950 Age: 72 Procedure: Colonoscopy Indications: Rectal bleeding Providers: Jesus Penaloza MD Medicines: See the Anesthesia note for documentation of the administered medications Patient Profile: Last Colonoscopy: February 2019. Complications: No immediate complications. Procedure: Pre-Anesthesia Assessment: - Prior to the procedure, a History and Physical was performed, and patient medications and allergies were reviewed. The patient's tolerance of previous anesthesia was also reviewed. The risks and benefits of the procedure and the sedation options and risks were discussed with the patient. All questions were answered, and informed consent was obtained. Prior Anticoagulants: The patient has taken no previous anticoagulant or antiplatelet agents. ASA Grade Assessment: II - A patient with mild systemic disease. After reviewing the risks and benefits, the patient was deemed in satisfactory condition to undergo the procedure. After I obtained informed consent, the scope was passed under direct vision. Throughout the procedure, the patient's blood pressure, pulse, and oxygen saturations were monitored continuously. The pediatric colonoscope was introduced through the anus and advanced to the cecum, identified by appendiceal orifice and ileocecal valve. The colonoscopy was performed without difficulty. The patient tolerated the procedure well. The quality of the bowel preparation was good. The ileocecal valve and the appendiceal orifice were photographed. Scope In: 9:52:04 AM Scope Withdrawal Time 0 hours 8 minutes 44 seconds Scope Out: 10:05:16 AM Total Procedure Duration Time 0 hours 13 minutes 12 seconds Findings: The digital rectal exam findings include non-thrombosed external hemorrhoids, non-thrombosed internal hemorrhoids and internal hemorrhoids that prolapse with straining, but spontaneously regress to the resting position (Grade II). A continuous area of bleeding ulcerated mucosa with stigmata of recent bleeding was present in the rectum, in the sigmoid colon and in the descending colon. Biopsies were taken with a cold forceps for histology. The transverse colon, ascending colon and cecum appeared normal. Impression: - Non-thrombosed external hemorrhoids, non-thrombosed internal hemorrhoids and internal hemorrhoids that prolapse with straining, but spontaneously regress to the resting position (Grade II) found on digital rectal exam. - Mucosal ulceration. Biopsied. - The transverse colon, ascending colon and cecum are normal. Recommendation: - Discharge patient to home. - Resume previous diet. - Continue present medications. - Use Pentasa (mesalamine) rectal enemas nightly rectal nightly for 2 weeks. - Discharge patient to home. - Repeat colonoscopy in 1 year for surveillance based on pathology results. - Refer to a tubing supervisor in 2 weeks. Procedure Code(s): --- Professional --- 88262, Colonoscopy, flexible; with biopsy, single or multiple Diagnosis Code(s): --- Professional --- K64.1, Second degree hemorrhoids K64.4, Residual hemorrhoidal skin tags K63.3, Ulcer of intestine K62.5, Hemorrhage of anus and rectum CPT copyright 2017 [employer]. All rights reserved. The codes documented in this report are preliminary and upon rechecker review may be revised to meet current compliance requirements. Jesus Penaloza MD 09/23/2022 10:24:20 AM This report has been signed electronically. Number of Addenda: 0 Note Initiated On: 09/23/2022 9:50 AM
--- NOTE | 2022-09-23 10:25 | OP.CCLET_ITS ---
09/23/2022 Dany Holman [address] [place] [address] Re : Colonoscopy procedure for Amy Brown Dear Dr. Holman This procedure was performed on Friday, September 23, 2022. My impressions and recommendations are as follows: Impressions : - Non-thrombosed external hemorrhoids, non-thrombosed internal hemorrhoids and internal hemorrhoids that prolapse with straining, but spontaneously regress to the resting position (Grade II) found on digital rectal exam. - Mucosal ulceration. Biopsied. - The transverse colon, ascending colon and cecum are normal. Recommendations : - Discharge patient to home. - Resume previous diet. - Continue present medications. - Use Pentasa (mesalamine) rectal enemas nightly rectal nightly for 2 weeks. - Discharge patient to home. - Repeat colonoscopy in 1 year for surveillance based on pathology results. - Refer to a fringe weaver in 2 weeks. My findings are described in the full procedure note, which is enclosed. If I can be of further assistance, please feel free to contact me at Doctor phone number(s): Work: . Sincerely, Jesus Penaloza MD 09/23/2022 10:24:20 AM This report has been signed electronically.
== END 2022-09-23 11:30 | disposition home or self-care (01) ==
LOC: SDC 08:20 → AC 08:21
PROVIDERS: PCP Internal Medicine; Referring Provider Surgery; Visit Provider Surgery
PROC: 0DJD8ZZ Inspection of Lower Intestinal Tract, Via Natural or Artificial Opening Endoscopic (ICD-10-PCS; CPT 45378; principal; 2022-09-23 09:25)
DX: K62.6 Ulcer of anus and rectum (principal); K29.51 Unspecified chronic gastritis with bleeding; K64.4 Residual hemorrhoidal skin tags; I10 Essential (primary) hypertension; K21.9 Gastro-esophageal reflux disease without esophagitis; K64.1 Second degree hemorrhoids; K44.9 Diaphragmatic hernia without obstruction or gangrene; Z80.0 Family history of malignant neoplasm of digestive organs
CPT/HCPCS: 45380; 43239; 88305; 88313; 88342; J7120; J2405

== ENCOUNTER → 2022-12-22 | Outpatient (CLI) | payer MEDICARE, SELFPAY ==
--- NOTE | 2022-12-22 08:31 | BI_ITS ---
MAMMOGRAPHY - BILATERAL SCREENING REASON FOR EXAM: Female, 72 years old. Routine annual screening examination. PERTINENT HISTORY: Mother with breast cancer. Remote right stereotactic breast biopsy. TECHNIQUE: Digital bilateral breast jignesh (3D mammographic acquisition) in the CC and MLO projections. 2-D mediolateral oblique (MLO) and craniocaudad (CC) views of both breasts were obtained. CAD: Full Field Digital Mammography with Computer Added Detection was performed. COMPARISON: Comparison is made with prior study December 19, 2021 and December 18, 2020. FINDINGS: Breast Composition: The breasts are extremely dense, which lowers the sensitivity of mammography. There are no dominant masses or suspicious calcifications. Stable small benign-appearing bilateral axillary lymph nodes. No other significant abnormalities are identified. There has been no significant change since the prior study. BI/SCRN MAMM (CAD)W/JIGNESH BILAT IMPRESSION: Stable bilateral screening mammogram. Yearly follow-up mammogram recommended. (A) ASSESSMENT CATEGORY: BIRADS Category 2: Benign. A letter regarding these results will be sent to the patient by the facility within 30 days. Approximately 10% of breast cancers are not detected by mammography. A normal mammogram should not delay biopsy of a clinically suspicious abnormality. [id number] Electronically Signed: Carmelo Hudson MD at 14:54 EDT ,
== END | disposition home or self-care (01) ==
LOC: OPBI 08:29
PROVIDERS: PCP Internal Medicine; Referring Provider Nurse Practitioner; Visit Provider Nurse Practitioner
DX: Z12.31 Encounter for screening mammogram for malignant neoplasm of breast (principal)
CPT/HCPCS: 77063; 77067

== ENCOUNTER 2023-06-02 09:32 | Outpatient (CLI) | payer MEDICARE, SELFPAY ==
[2023-06-02 09:47] VITALS: BP 142/70; PULSE 103; RESP 16; TEMP 35.7; O2SAT 100; BMI 29.2
[2023-06-02 10:16] VITALS: BP 117/68; PULSE 95; RESP 16; TEMP 36.8; O2SAT 94
[2023-06-02 11:30] VITALS: BP 115/69; PULSE 85; RESP 16; TEMP 36.6; O2SAT 99
[2023-06-02 12:11] VITALS: BP 118/65; PULSE 59; RESP 16; TEMP 36.4; O2SAT 99
[2023-06-02 13:20] VITALS: BP 122/66; PULSE 97; RESP 16; TEMP 36.6; O2SAT 97
[2023-06-02 14:12] VITALS: BP 125/73; PULSE 93; RESP 16; TEMP 36.3; O2SAT 97
== END 2023-06-02 09:33 | disposition home or self-care (01) ==
LOC: MEDOUTP 09:32
PROVIDERS: PCP Internal Medicine; Referring Provider Internal Medicine; Visit Provider Internal Medicine
DX: D64.9 Anemia, unspecified (principal)
CPT/HCPCS: 36415; 36430; 86850; 86900; 86901; 86920; 86922; J7040; P9016; A4216

== ENCOUNTER → 2023-11-10 | Outpatient (CLI) | payer MEDICARE, SELFPAY ==
[2023-11-10 09:50] LABS: Absolute Lymphocyte Count 2.31 X10^3/uL (0.83-4.51); Absolute Neutrophil Count 2.4 X10^3/uL (2.0-7.7); Basophil# 0.03 X10^3/uL; Basophil% 0.6 % (0-1); Eosinophil# 0.08 X10^3/uL; Eosinophils% 1.5 % (0-5); Hematocrit 41.3 % (37-47); Hemoglobin 13.5 g/dL (12.0-15.0); Lymphocyte # 2.31 X10^3/ul (0.83-4.51); Lymphocyte % 44.3 % (19-41); Mean Corp Hgb Conc 32.7 g/dL (32-36); Mean Corpuscular Hgb 30.7 pg (27.0-32.0); Mean Corpuscular Volume 93.9 fL (81-99); Mean Platelet Vol. 12.4 fl (6.2-12.0); Monocyte# 0.37 X10^3/uL; Monocyte% 7.1 % (0-10); NRBC Flagged by Analyzer 0 % (0-5); Neutrophil # 2.41 X10^3/uL (2.7-7.7); Neutrophil % 46.3 % (47-70); Platelet Count 201 K/mm3 (150-450); RBC Distribution Width CV 12.4 % (11.6-14.6); RBC Distribution Width SD 42.3 fl (35.1-43.9); White Blood Count 5.2 K/mm3 (4.4-11.0)
[2023-11-10 09:53] LABS: Erythrocyte Sedimentation Rate 11 mm/hr (0-30)
[2023-11-10 10:43] LABS: ALB/GLOB Ratio 0.9 RATIO (0.9-2.4); AST(SGOT) 14 U/L (15-37); Alanine Aminotransfer ALT/SGPT 11 U/L (13-56); Albumin, Serum 3.9 g/dL (3.2-5.0); Alkaline Phosphatase 67 U/L (45-117); Anion Gap 7 (5-15); BUN 10 mg/dL (7-18); BUN/Creat Ratio 11.4 RATIO (10-20); CRP < 2.90 mg/L (0.0-3.0); Calcium,Total 10.3 mg/dL (8.5-10.1); Chloride 107 mmol/L (98-107); Creatinine, Serum 0.88 mg/dL (0.55-1.02); EST Glomerular Filtration Rate 67 mL/min (>60); Est Glom Filt Rate - Afr Amer 81 mL/min (>60); Globulin 4.5 g/dL (2.2-4.2); Glucose 102 mg/dL (74-106); Iron 84 ug/dL (50-170); Iron Binding Capacity,Total 339 ug/dL (250-450); Potassium 3.8 mmol/L (3.5-5.1); Protein, Total 8.4 g/dL (6.4-8.2); Sodium Level 141 mmol/L (136-145)
== END | disposition home or self-care (01) ==
LOC: LAB 08:53
PROVIDERS: PCP Internal Medicine; Referring Provider Student in an Organized Health Care Education/Training Program; Visit Provider Student in an Organized Health Care Education/Training Program
DX: D64.9 Anemia, unspecified (principal); K52.9 Noninfective gastroenteritis and colitis, unspecified; Z87.19 Personal history of other diseases of the digestive system
CPT/HCPCS: 36415; 80053; 82784; 82785; 83516; 83540; 83550; 84165; 85025; 85652; 86003; 86005; 86036; 86140; 86225; 86235; 86256; 86334; 86671

== ENCOUNTER → 2023-11-18 | Outpatient (CLI) | payer MEDICARE, SELFPAY ==
[2023-11-22 17:07] LABS: Giardia Lamblia, Stool EIA Negative (Negative); Pancreatic Elastase, Fecal > 800 (>200)
[2023-11-23 15:09] LABS: Calprotectin, Stool 97 ug/g (0-120)
== END | disposition home or self-care (01) ==
PROVIDERS: PCP Internal Medicine; Referring Provider Student in an Organized Health Care Education/Training Program; Visit Provider Student in an Organized Health Care Education/Training Program
DX: K52.9 Noninfective gastroenteritis and colitis, unspecified (principal)
CPT/HCPCS: 82653; 83630; 83993; 87329; 87493

== ENCOUNTER → 2023-12-24 | Outpatient (CLI) | payer MEDICARE, SELFPAY ==
--- NOTE | 2023-12-24 08:24 | BI_ITS ---
MAMMOGRAPHY - BILATERAL SCREENING REASON FOR EXAM: Female, 73 years old. Routine annual screening examination. PERTINENT HISTORY: Mother with breast cancer. Remote right stereotactic breast biopsy. TECHNIQUE: Digital bilateral breast jignesh (3D mammographic acquisition) in the CC and MLO projections. 2-D mediolateral oblique (MLO) and craniocaudad (CC) views of both breasts were obtained. CAD: Full Field Digital Mammography with Computer Added Detection was performed. COMPARISON: Comparison is made with prior study December 22, 2022 and December 19, 2021. FINDINGS: Breast Composition: The breasts are extremely dense, which lowers the sensitivity of mammography. There are no dominant masses or suspicious calcifications. Stable small benign-appearing axillary lymph nodes. Secretory calcifications are seen in both breasts. No other significant abnormalities are identified. There has been no significant change since the prior study. BI/SCRN MAMM (CAD)W/JIGNESH BILAT IMPRESSION: Stable bilateral screening mammogram. Yearly follow-up mammogram recommended. (A) ASSESSMENT CATEGORY: BIRADS Category 2: Benign. A letter regarding these results will be sent to the patient by the facility within 30 days. Approximately 10% of breast cancers are not detected by mammography. A normal mammogram should not delay biopsy of a clinically suspicious abnormality. [id number] Electronically Signed: Carmelo Hudson MD at 9:22 EDT ,
== END | disposition home or self-care (01) ==
LOC: OPBI 08:19
PROVIDERS: PCP Internal Medicine; Referring Provider Nurse Practitioner; Visit Provider Nurse Practitioner
DX: Z12.31 Encounter for screening mammogram for malignant neoplasm of breast (principal)
CPT/HCPCS: 77063; 77067

== ENCOUNTER → 2024-11-15 | Outpatient (CLI) | payer OTHER, SELFPAY ==
[2024-11-15 10:52] LABS: Hematocrit 42.4 % (37-47); Hemoglobin 14.3 g/dL (12.0-15.0); Immature Granulocytes Count 0.010 X10^3/uL (0.0-0.0); Mean Corp Hgb Conc 33.7 g/dL (32-36); Mean Corpuscular Volume 92.4 fL (81-99); Mean Platelet Vol. 11.9 fl (6.2-12.0); NRBC Flagged by Analyzer 0 % (0-5); Platelet Count 176 K/mm3 (150-450); RBC Distribution Width CV 12.0 % (11.6-14.6); RBC Distribution Width SD 41.2 fl (35.1-43.9); Red Blood Count 4.59 M/mm3 (4.2-5.4); White Blood Count 5.3 K/mm3 (4.4-11.0)
[2024-11-15 11:45] LABS: CRP < 3.00 mg/L (0.0-3.0)
[2024-11-17 15:08] LABS: Calprotectin, Stool 24 ug/g (0-120)
== END | disposition home or self-care (01) ==
PROVIDERS: PCP Internal Medicine; Referring Provider Student in an Organized Health Care Education/Training Program; Visit Provider Student in an Organized Health Care Education/Training Program
DX: K52.9 Noninfective gastroenteritis and colitis, unspecified (principal)
CPT/HCPCS: 36415; 83993; 85025; 85652; 86140

== ENCOUNTER → 2024-12-25 | Outpatient (CLI) | payer OTHER, SELFPAY ==
--- NOTE | 2024-12-25 07:56 | BI_ITS ---
EXAM: SCRN MAMM (CAD)W/JIGNESH BILAT DATE: 12/25/2024 CLINICAL HISTORY: F, Age 74 y/o , SCREENING History of mother with breast cancer. Remote right stereotactic breast biopsy. TECHNIQUE: Procedure Code: [id number] Modality: MG Procedure: SCRN MAMM (CAD)W/JIGNESH BILAT COMPARISON: Prior exam(s) dated December 24, 2023.. FINDINGS: TISSUE DENSITY: The breasts are heterogeneously dense, which may obscure small masses. Bilateral Breast Mammographic Findings: No significant masses, calcifications or other abnormalities are identified. Stable bilateral No suspicious masses, areas of developing architectural distortion, or suspicious calcifications. There has been no significant interval change. BI/SCRN MAMM (CAD)W/JIGNESH BILAT IMPRESSION: Stable bilateral screening mammogram. OVERALL FINAL ASSESSMENT BI-RADS 2: BENIGN RECOMMENDATION: Routine annual follow-up in 1 Year Additional Recommendation none A letter with findings and recommendations will be mailed to the patient. Reading Location: [facility]
--- NOTE | 2024-12-25 07:56 | BI_ITS ---
EXAM: SCRN MAMM (CAD)W/JIGNESH BILAT DATE: 12/25/2024 CLINICAL HISTORY: F, Age 74 y/o , SCREENING History of mother with breast cancer. Remote right stereotactic breast biopsy. TECHNIQUE: Procedure Code: [id number] Modality: MG Procedure: SCRN MAMM (CAD)W/JIGNESH BILAT COMPARISON: Prior exam(s) dated December 24, 2023.. FINDINGS: TISSUE DENSITY: The breasts are heterogeneously dense, which may obscure small masses. Bilateral Breast Mammographic Findings: No significant masses, calcifications or other abnormalities are identified. Stable bilateral No suspicious masses, areas of developing architectural distortion, or suspicious calcifications. There has been no significant interval change. BI/SCRN MAMM (CAD)W/JIGNESH BILAT IMPRESSION: Stable bilateral screening mammogram. OVERALL FINAL ASSESSMENT BI-RADS 2: BENIGN RECOMMENDATION: Routine annual follow-up in 1 Year Additional Recommendation none A letter with findings and recommendations will be mailed to the patient. Reading Location: [facility]
== END | disposition home or self-care (01) ==
PROVIDERS: PCP Internal Medicine; Referring Provider Nurse Practitioner; Visit Provider Nurse Practitioner
DX: Z12.31 Encounter for screening mammogram for malignant neoplasm of breast (principal)
CPT/HCPCS: 77063; 77067